=== PATIENT | female | born 1985 | race Caucasian/White ===

== ENCOUNTER 2024-10-30 18:47 | Emergency (ER) | payer OTHER, SELFPAY ==
[2024-10-30 19:05] VITALS: BP 118/87; PULSE 85; TEMP 36.9; O2SAT 98; BMI 24.6
--- NOTE | 2024-10-30 19:29 | ED_ITS ---
HPI - Extremity Problem General Chief complaint: Extremity Problem, Nontraumatic Stated complaint: HIP PAIN Time Seen by Provider: 10/30/24 19:26 Source: patient Mode of arrival: walk-in Limitations: no limitations History of Present Illness HPI Narrative: This 39-year-old female with no significant medical history presents for evaluation of right hip pain. The pain started approximately 1 month ago but has been increasingly bad for the past week. She is having trouble with her ADLs including dressing herself and ambulating. She denies any specific injury. Pain is in the right inguinal area and lateral hip area. She states it does not feel like sciatica. The patient states she feels like there is something on her bone. She also admits to episodes of night sweats and generalized fatigue. She has not had any fever. There is no redness or swelling in this area. She does not have any congenital issues. There is no pain in her foot, ankle, lower leg knee or thigh. She is able to raise her leg independently off of the stretcher and hold it against gravity. She has been using Tylenol and Motrin. She has anxiety about taking medications and declines any strong pain medications or muscle relaxants. She denies any chest pain or shortness of breath. She has no abdominal pain. She denies any back pain. Related Data Home Medications ?Medication ?Instructions ?Recorded ?Confirmed citalopram 40 mg tablet mg 10/30/24 lorazepam 2 mg tablet mg 10/30/24 Allergies Allergy/AdvReac Type Severity Reaction Status Date / Time Penicillins Allergy Hives Verified 10/30/24 19:11 sulfamethoxazole (From Allergy Anaphylaxis Verified 10/30/24 19:11 Bactrim) trimethoprim (From Bactrim) Allergy Anaphylaxis Verified 10/30/24 19:11 Review of Systems ROS Status of ROS 10 or more systems reviewed and unremark able except as noted in history and below PFSH PFSH Social History Little interest or pleasure in doing things: not at all Feeling down, depressed, or hopeless: not at all Exam Narrative Exam Narrative: Vital signs and Nursing Notes reviewed: Patient is afebrile with a normal pulse, normal blood pressure, she is mildly tachypneic with a respirate of 22, she is not hypoxic with pulse ox of 98% on room air General: Awake, alert, oriented, nontoxic but anxious and uncomfortable appearing adult female, no respiratory distress HEENT: Normocephalic atraumatic, mucous membranes are moist and pink, eyes are clear, normal conjunctiva, vision is grossly intact Chest: Lungs are clear to auscultation with good air entry, there is no wheezing rhonchi or rales appreciated no accessory muscle use, patient is speaking in complete sentences-no chest wall tenderness to palpation CVS: Regular rate and rhythm S1-S2, no murmurs rubs or gallops, pulses are brisk and equal bilaterally ABD: Soft, nondistended, nontender, no rebound guarding or rigidity, bowel sounds are normal, no pulsatile masses appreciated Extremities: Moving all extremities, there is tenderness to deep palpation in the right lateral trochanteric area. There is no redness swelling or skin rash in this area. Patient is able to flex at the hip and knee joint but this does cause reproducible pain in the hip joint. Feet are warm and sensate with normal pulses. There is no tenderness to the foot, ankle, lower leg knee or quadricep muscle. She is able to raise her right leg independently off the stretcher and hold it against gravity. Skin: Normal in appearance without rash,pallor, petechiae or purpura Neuro: No focal deficits Constitutional Vital Signs, click to edit/add: Last Vital Signs Temp 98.4 F 10/30/24 19:05 Pulse 85 10/30/24 19:05 Resp 22 H 10/30/24 19:05 BP 118/87 10/30/24 19:05 Pulse Ox 98 10/30/24 19:05 O2 Del Method Room Air 10/30/24 19:05 Course Vital Signs Vital signs: Vital Signs Temperature 98.4 F 10/30/24 19:05 Pulse Rate 85 10/30/24 19:05 Respiratory Rate 22 H 10/30/24 19:05 Blood Pressure 118/87 10/30/24 19:05 Pulse Oximetry 98 10/30/24 19:05 Oxygen Delivery Method Room Air 10/30/24 19:05 Temperature 98.4 F 10/30/24 19:05 Pulse Rate 85 10/30/24 19:05 Respiratory Rate 22 H 10/30/24 19:05 Blood Pressure 118/87 10/30/24 19:05 Pulse Oximetry 98 10/30/24 19:05 Oxygen Delivery Method Room Air 10/30/24 19:05 MDM - Extremity (Nontraumatic) MDM Narrative Medical decision making narrative: This 39-year-old female presents for evaluation of right sided hip pain that has been present for the past month but recently increased in intensity making her ADLs difficult. She has trouble walking and lifting her leg. She denies any injury. She states this does not feel like sciatica. She has no back pain. The pain is in the right upper and lateral area of her right hip. She does not have any specific weakness but has pain with range of motion. There is no redness or swelling in this area. She additionally states she has been having night sweats. The patient's vital signs and physical exam are benign. She flatly refused any pain medication or muscle relaxant stating that she has had these in the past and had a bad reaction to them and it causes her to have a lot of anxiety. She was agreeable to an IV and IV Toradol. X-ray of both hips was ordered and reviewed by myself. I do not see any fracture or dislocation femoral head necrosis or other notable abnormality. Routine labs are ordered. She has a normal white count and hemoglobin. Electrolytes are normal. CRP and sed rate are both normal. Lactic acid is normal. D-dimer is also normal. The results of the labs were discussed with her. Clinically I suspect that she has a hip bursitis. She was agreeable to a short course of steroids. I suggested that she rest for the next several days and take some time off from work to al low her hip to start to heal. She was given 60 mg of IV Solu-Medrol and discharged with a prescription for Medrol Dosepak. Lab Data Labs: Lab Results 10/30/24 Range/Units 19:35 WBC 10.4 (4.0-11.0) 10^3/uL RBC 4.43 (4.20-5.40) 10^6/uL Hgb 13.8 (12.0-16.0) g/dL Hct 41.1 (36.0-48.0) % MCV 92.8 (81.0-99.0) fL MCH 31.2 (26.7-34.0) pg MCHC 33.6 (29.9-35.2) g/dL RDW 13.2 (11.0-15.0) % Plt Count 242 (150-450) 10^3/uL MPV 10.0 (9.5-13.5) fL Neut % (Auto) 62.1 (43.0-75.0) % Lymph % (Auto) 26.1 (20.5-60.0) % Independence % (Auto) 9.0 (1.7-12.0) % Eos % (Auto) 1.7 (0.9-7.0) % Baso % (Auto) 0.8 (0.2-2.0) % Neut # (Auto) 6.5 (1.4-6.5) 10^3/uL Lymph # (Auto) 2.7 (1.2-3.8) 10^3/uL Independence # (Auto) 0.9 H (0.3-0.8) 10^3/uL Eos # (Auto) 0.2 (0.0-0.7) 10^3/uL Baso # (Auto) 0.1 (0.0-0.1) 10^3/uL Abs Immat Gran (auto) 0.03 (0.00-0.03) 10^3/uL Imm/Tot Granulo (auto) 0.3 (0.0-0.5) % ESR 21 H (<=20) mm/hr D-Dimer 0.21 (<=0.59) mg/L FEU Sodium 140 (136-145) mmol/L Potassium 3.7 (3.5-5.1) mmol/L Chloride 103 (98-107) mmol/L Carbon Dioxide 28.1 (21.0-32.0) mmol/L Anion Gap 12.6 BUN 11.0 (7.0-18.0) mg/dL Creatinine 0.72 (0.55-1.02) mg/dL Est GFR ( Amer) >60 (>=60 mL/min/1.73m^2) Est GFR (Non-Af Amer) >60 (>=60 mL/min/1.73m^2) BUN/Creatinine Ratio 15.3 Glucose 96 (74-106) mg/dL Lactate 0.8 (0.4-2.0) mmol/L Calcium 8.8 (8.5-10.1) mg/dL Total Bilirubin 0.2 (0.2-1.0) mg/dL AST 23 (15-37) U/L ALT 33 (14-59) U/L Alkaline Phosphatase 97 (46-116) U/L C-Reactive Protein <0.50 (<=0.50) mg/dL Total Protein 6.7 (6.4-8.2) g/dL Albumin 3.1 L (3.4-5.0) g/dL Globulin 3.6 g/dL Albumin/Globulin Ratio 0.9 Discharge Plan Discharge Chief Complaint: Extremity Problem, Nontraumatic Clinical Impression: Acute hip pain, Bursitis of hip, right Patient Disposition: Home, Self-Care Time of Disposition Decision: 21:18 Condition: Good Prescriptions / Home Meds: No Action citalopram 40 mg tablet lorazepam 2 mg tablet Print Language: Greek Instructions: Hip Bursitis (ED), Hip Pain (ED) Referrals: Physician,Non-Staff, [Primary Care Provider] - 1 week Mike Petersen MD [Physician] - 1 week
[2024-10-30] MEDS: KETOROLAC TROMETHAMINE 30 MG/ML VIAL IVP (19:54)
[2024-10-30 20:02] LABS: Basophils Absolute Auto 0.1 10^3/uL (0.0-0.1); Basophils Percent Auto 0.8 % (0.2-2.0); Eosinophils Absolute Auto 0.2 10^3/uL (0.0-0.7); Eosinophils Percent Auto 1.7 % (0.9-7.0); Hematocrit 41.1 % (36.0-48.0); Hemoglobin 13.8 g/dL (12.0-16.0); Immature Granulocytes Abs Auto 0.03 10^3/uL (0.00-0.03); Immature Granulocytes Pct Auto 0.3 % (0.0-0.5); Lymphocytes Absolute Auto 2.7 10^3/uL (1.2-3.8); Lymphocytes Percent Auto 26.1 % (20.5-60.0); Mean Corpuscular HGB Conc 33.6 g/dL (29.9-35.2); Mean Corpuscular Hemoglobin 31.2 pg (26.7-34.0); Mean Corpuscular Volume 92.8 fL (81.0-99.0); Monocytes Absolute Auto 0.9 10^3/uL (0.3-0.8); Neutrophils Absolute Auto 6.5 10^3/uL (1.4-6.5); Neutrophils Percent Auto 62.1 % (43.0-75.0); Platelet Count 242 10^3/uL (150-450); Red Blood Count 4.43 10^6/uL (4.20-5.40); Red Cell Distribution Width 13.2 % (11.0-15.0); White Blood Count 10.4 10^3/uL (4.0-11.0)
[2024-10-30 20:13] LABS: Erythrocyte Sedimentation Rate 21 mm/hr (<=20)
[2024-10-30 20:17] LABS: D Dimer 0.21 mg/L FEU (<=0.59)
[2024-10-30 20:19] LABS: Alanine Aminotransferase 33 U/L (14-59); Albumin Globulin Ratio 0.9; Albumin Level 3.1 g/dL (3.4-5.0); Alkaline Phosphatase 97 U/L (46-116); Anion Gap 12.6; Aspartate Amino Transferase 23 U/L (15-37); BUN Creatinine Ratio 15.3; Bilirubin Total 0.2 mg/dL (0.2-1.0); C Reactive Protein <0.50 mg/dL (<=0.50); Calcium 8.8 mg/dL (8.5-10.1); Carbon Dioxide 28.1 mmol/L (21.0-32.0); Chloride 103 mmol/L (98-107); Estimated GFR (African America >60 (>=60 mL/min/1.73m^2); Estimated GFR (Non-African Ame >60 (>=60 mL/min/1.73m^2); Globulin 3.6 g/dL; Glucose 96 mg/dL (74-106); Potassium 3.7 mmol/L (3.5-5.1); Sodium 140 mmol/L (136-145); Total Protein 6.7 g/dL (6.4-8.2)
[2024-10-30 20:21] LABS: Lactate/Lactic Acid 0.8 mmol/L (0.4-2.0)
[2024-10-30] MEDS: METHYLPREDNISOLONE SOD SUCC PF 125 MG/2 ML VIAL 60 MG IVP (21:28)
== END 2024-10-30 21:53 | disposition home or self-care (01) ==
PROVIDERS: Emergency Provider Emergency Medicine
DX: M70.71 Other bursitis of hip, right hip (principal); M25.551 Pain in right hip
CPT/HCPCS: 36415; 73523; 80053; 83605; 85025; 85378; 85652; 86140; 96374; 96375; 99285; J1885; J2919